=== PATIENT | male | born 1965 | race Caucasian/White ===

== ENCOUNTER 2023-12-28 10:49 | Emergency (ER) | payer OTHER ==
[~2023-12-28] VITALS: Ht 182.9 cm; Wt 110.4 kg
[2023-12-28 11:58] LABS: BASOPHILS 0.2 % (0-2); EOSINOPHILS 4.3 % (0-6); HEMATOCRIT 50.4 % (35.0-50.0); HEMOGLOBIN 17.8 g/dL (12.0-18.0); LYMPHOCYTES 6.7 % (24-44); MCHC 35.4 g/dl (30-36); MCV 101.7 fl (81-99); MONOCYTES 8.3 % (0-12); NEUTROPHILS 80.5 % (39-80); PLATELET COUNT 158 K/uL (140-440); RBC 4.96 M/ul (4.3-5.7); RDW 13.6 (10.5-15.0)
[2023-12-28 12:18] LABS: ALBUMIN 3.6 g/dL (3.4-5.0); ALBUMIN/GLOBULIN RATIO 0.92 (1.1-2.4); ANION GAP 11.4 (7-21); BILIRUBIN, TOTAL 0.6 ng/dL (0.2-1.0); BUN/CREATININE RATIO 13.09 (6.0-28.6); CALCIUM 9.2 mg/dL (8.5-10.1); CREATININE, SERUM 0.84 mg/dL (0.70-1.30); POTASSIUM 4.4 mmol/L (3.5-5.1); PROTEIN, TOTAL 7.5 g/dL (6.4-8.2)
[2023-12-28] MEDS ORDERED: HEParin SOD (PORCINE) 5,000 UNIT/ML SYR IV ONE ×2 (14:15)
[2023-12-28] MEDS ORDERED: HEPARIN SOD,PORK IN 0.45% NACL 500 ML IV SCH (14:15)
[2023-12-28 14:30] LABS: INR 0.95 (0.80-1.30); PARTIAL THROMBOPLASTIN TIME 27.8 Sec (22.9-41.3)
[2023-12-28] MEDS ORDERED: NICOTINE POLACRILEX 4 MG LOZENGE BUCCAL PRN (19:00)
[2023-12-29] MEDS ORDERED: HEParin SOD (PORCINE) 5,000 UNIT/ML SYR IV PRN ×3 (07:30)
[2023-12-29] MEDS ORDERED: NICOTINE 14 MG/24 HR 1 EA TDSY TD ONE (14:30)
[2023-12-29] MEDS ORDERED: LORazepam 2 MG/ML VIAL IV ONE (14:30)
[2023-12-29] MEDS ORDERED: LORazepam 2 MG/ML VIAL IV PRN (18:45)
[2023-12-29] MEDS ORDERED: ACETAMINOPHEN 500 MG TAB PO ONE (20:00)
[2023-12-29] MEDS ORDERED: TRAZODONE HCL 50 MG TAB PO SCH (21:00)
[2023-12-30 13:35] VITALS: BP 167/88
[2023-12-30] MEDS ORDERED: LOSARTAN POTASS25 MG PO (13:45)
== END 2023-12-30 13:35 | disposition short-term general hospital (02) ==
LOC: ED 10:49
PROVIDERS: Emergency Medicine
DX: I82.412 Acute embolism and thrombosis of left femoral vein (principal); I82.422 Acute embolism and thrombosis of left iliac vein; K57.30 Diverticulosis of large intestine without perforation or abscess without bleeding; I10 Essential (primary) hypertension; E27.9 Disorder of adrenal gland, unspecified
CPT/HCPCS: 36415; 74177; 80053; 85025; 85610; 85730; 93971; 96366; 96375; 96376; 99285-25; A9270; J1644; J2060; Q9967

== ENCOUNTER 2024-01-12 02:32 | Inpatient (IN) | payer OTHER ==
[~2024-01-12] VITALS: Ht 182.9 cm; Wt 107.1 kg
[2024-01-12] VITALS (7 sets, daily range): BP systolic 131–170; BP diastolic 70–97
--- OUTSIDE RECORDS SUMMARY | ~2024-01-12 | XMS | Continuity of Care Document ---
Demographics + + + | Address | [address] | | | [place] [address] | + + + | Preferred Language | Unknown | + + + | Marital Status | Unknown | + + + | Druze Affiliation | Unknown | + + + | Race | White | + + + | Ethnic Group | Not or | + + + Author + + + | Author | [facility] | + + + | Organization | [facility] | + + + | Address | [address] | | | [place] [address] | + + + | Phone | | + + + Care Team Providers + + + + | Care Jacquard Card Cutter Name | Role | Phone | + + + + Unavailable | Unavailable | + + + + Allergies No information. Encounters No information. Functional Status No information. Immunizations No information. Medications No information. Problems + + + + | date | description | facility | + + + + | 2024-01-03 13:33:32 | Essential (primary) | [facility] | | | hypertension | | + + + + | 2024-01-03 13:33:32 | Acute embolism and | [facility] | | | thrombosis of left femoral | | | | vein | | + + + + Procedures No information. Results/Labs No information. Social History +--------+ + + | date | description | facility | +--------+ + + Vital Signs No information."
--- OUTSIDE RECORDS SUMMARY | ~2024-01-12 | XMS | Continuity of Care Document ---
Demographics + + + | Address | [address] | | | [place] [address] | + + + | Preferred Language | Unknown | + + + | Marital Status | Unknown | + + + | Sikh Affiliation | Unknown | + + + | Race | White | + + + | Ethnic Group | Not or | + + + Author + + + | Author | [facility] | + + + | Organization | [facility] | + + + | Address | [address] | | | [place] [address] | + + + | Phone | | + + + Care Team Providers + + + + | Care Client Technical Professional Name | Role | Phone | + [...]
[~2024-01-12 02:32] MED LIST: LOSARTAN POTASS25 MG PO
--- OUTSIDE RECORDS SUMMARY | 2024-01-12 02:33 | XMS ---
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 - 2 Visits in 30 Days CARE PROVIDERS ALLEGRA WARREN Emergency Medicine Current PHONE: [phone] RIAN GEE Physician Current PHONE: Unknown Anthony has no Care Guidelines for this patient. Tana VISIT COUNT (12 MO.) 2 [facility] TOTAL 2 NOTE: Visits indicate total known visits. ED/UCC VISIT TRACKING (12 MO.) 01/12/2024 02:[address] [facility] [place] TYPE: Emergency COMPLAINT: - POSS STROKE 12/28/2023 10:50 [facility] [place] TYPE: Emergency COMPLAINT: - LT LEG SWELLING DIAGNOSES: - Acute embolism and thrombosis of left femoral vein - Acute embolism and thrombosis of left iliac vein - Disorder of adrenal gland, unspecified - Diverticulosis of large intestine without perforation or abscess without bleeding - Essential (primary) hypertension - Localized swelling, mass and lump, left lower limb INPATIENT VISIT TRACKING (12 MO.) 12/30/2023 18:23 [facility] TYPE: General Medicine COMPLAINT: - DVT DIAGNOSES: - Acute embolism and thrombosis of left femoral vein - Acute embolism and thrombosis of unspecified deep veins of unspecified lower extremity - Essential (primary) hypertension [email or web address]
[2024-01-12] MEDS ORDERED: IBLOOD GLUCOSE TEST STRIP 1 EA TEST XX ONE (02:45)
[2024-01-12 02:56] LABS: BASOPHILS 0.3 % (0-2); EOSINOPHILS 0.9 % (0-6); HEMATOCRIT 44.3 % (35.0-50.0); HEMOGLOBIN 15.2 g/dL (12.0-18.0); LYMPHOCYTES 2.7 % (24-44); MCH 34.9 (27-36); MCHC 34.2 g/dl (30-36); MONOCYTES 6.6 % (0-12); NEUTROPHILS 89.5 % (39-80); PLATELET COUNT 242 K/uL (140-440); RBC 4.35 M/ul (4.3-5.7); RDW 13.4 (10.5-15.0)
[2024-01-12 03:06] LABS: PARTIAL THROMBOPLASTIN TIME 29.9 Sec (22.9-41.3)
[2024-01-12 03:07] LABS: PROTIME 12.5 Sec (11.2-14.2)
[2024-01-12] MEDS ORDERED: ELIQUIS5 MG PO (03:12)
[2024-01-12] MEDS ORDERED: VITAMIN B-121000 MCG PO (03:13)
[2024-01-12 03:20] LABS: ALBUMIN 3.5 g/dL (3.4-5.0); ALBUMIN/GLOBULIN RATIO 0.97 (1.1-2.4); ANION GAP 14.8 (7-21); BILIRUBIN, TOTAL 0.4 ng/dL (0.2-1.0); BUN/CREATININE RATIO 16.16 (6.0-28.6); CALCIUM 8.6 mg/dL (8.5-10.1); CREATININE, SERUM 0.99 mg/dL (0.70-1.30); POTASSIUM 3.8 mmol/L (3.5-5.1); PROTEIN, TOTAL 7.1 g/dL (6.4-8.2)
[2024-01-12 03:47] LABS: BILIRUBIN, URINE NEGATIVE (negative); BLOOD/HGB, URINE NEGATIVE (Negative); KETONE, URINE NEGATIVE (Negative); LEUK ESTERASE, URINE NEGATIVE (negative); NITRITE, URINE NEGATIVE (negative)
[2024-01-12 03:57] LABS: AMPHETAMINES, URINE NEGATIVE (NEGATIVE); BARBITURATES, URINE NEGATIVE (NEGATIVE); BENZODIAZEPINE, URINE NEGATIVE (NEGATIVE); BUPRENORPHINE, URINE NEGATIVE (NEGATIVE); CANNABINOID, URINE NEGATIVE (NEGATIVE); COCAINE, URINE NEGATIVE (NEGATIVE); ECSTASY, URINE NEGATIVE (NEGATIVE); FENTANYL, URINE NEGATIVE (NEGATIVE); METHADONE, URINE NEGATIVE (NEGATIVE); OPIATES, URINE NEGATIVE (NEGATIVE); OXYCODONE, URINE NEGATIVE (NEGATIVE); PHENCYCLIDINE, URINE NEGATIVE (NEGATIVE)
[2024-01-12] MEDS ORDERED: ATORVASTATIN 40 MG TAB PO ONE (04:00)
--- NOTE | 2024-01-12 05:06 | NUR ---
PATIENT BROUGHT TO THE FLOOR BY THIS RN. PATIENT TRANSFERRED FROM STRETCHER TO BED BY STAFF. PATIENT REPORTS NEEDING TO URINATE. THIS RN ASSISTED PATIENT WITH URINAL. SKIN ASSESSMENT COMPLETE. LEFT LEG +3 EDEMA PRESENT. PATIENT STATES EDEMA AND REDNESS IS FROM PREVIOUS DVT. LLE PULSE PRESENT USING DOPPLER. RLE PULSE STRONG TO TOUCH. TELE IN PLACE. IV FLUSHES WNL. PATIENT DENIES PAIN. FRESH WATER PROVIDED. BED ALARM ON FOR SAFETY.
--- NOTE | 2024-01-12 06:34 | NUR ---
CALL LIGHT ANSWERED. PATIENT WANTING TO STAND UP AT EDGE OF BED TO USE URINAL. THIS RN AND SHOE PACKER ASSISTED PATIENT TO STAND UP AT EDGE OF BED WITH FWW. PATIENT ABLE TO STAND AND MARCH IN PLACE. PATIENT VOIDED INTO URINAL. PATIENT SITTING AT EDGE OF BED, LOOKING OUT WINDOW. PATIENT REQUESTING TO STAY SITTING AT EDGE OF BED. PATIENT EDUCATED NOT TO GET UP WITHOUT STAFF ASSISTANCE. PATIENT VERBILIZES UNDERSTANDING. BED ALARM ON. COFFEE PROVIDED PER PATIENT REQUEST. CALL LIGHT IN REACH.
--- NOTE | 2024-01-12 08:00 | NUR ---
PT IS CURRENTLY IN BED AND CALLED TO ASK FOR HELP FINDING THE NUMBER TO HIS JOB. PT STATES THAT HE NEEDS NOTHING AT THIS TIME. CALL LIGHT WITHIN REACH
[2024-01-12 09:25] LABS: CHOLESTEROL/HDL RATIO 4.6; MAGNESIUM 1.8 mg/dL (1.8-2.4); PHOSPHORUS, INORGANIC 2.9 mg/dL (2.5-4.9)
--- NOTE | 2024-01-12 10:37 | NUR ---
MED REC COMPLETE
--- NOTE | 2024-01-12 11:26 | NUR ---
WHILE PATIENT WAS OUT OF HIS ROOM. GOT HIM SOME FRESH ICE WATER AND CHANGED HIS BED LINENS.
[2024-01-12] MEDS ORDERED: ondansetron HCL 4 MG/2 ML VIAL IV PRN (13:15)
[2024-01-12] MEDS ORDERED: NICOTINE POLACRILEX 4 MG LOZENGE BUCCAL PRN (13:15)
[2024-01-12] MEDS ORDERED: ACETAMINOPHEN 325 MG TAB PO PRN (13:15)
--- NOTE | 2024-01-12 13:27 | NUR ---
VISITED DURING SPIRITUAL CARE ROUNDS. PT APPEARED TO BE SOMEWHAT CYNICAL STATING, "I FEEL LIKE SHIT BUT I'LL GET BY - I ALWAYS DO." RESISTANT TO ENGAGING MORE FULLY IN CONVERSATION. INSTRUMENTATION TECHNOLOGIST PROVIDED SUPPORTIVE PRESENCE, HOSPITALITY, PRAYER. PT EXPRESSED GRATITUDE FOR VISIT.
--- NOTE | 2024-01-12 14:35 | NUR ---
IN TO ROUND ON PT. PT LAYING IN BED AND RESPONDS WHEN ADDRESSED. PT DENIES ANY NEEDS AT THIS TIME. CALL LIGHT IN REACH.
--- NOTE | 2024-01-12 14:51 | NUR ---
NO RT INTERVENTIONS REQUIRED AT THIS TIME. PLEASE CALL WITH CONCERNS OR O2 USE.
--- NOTE | 2024-01-12 16:00 | NUR ---
Spoke with pt. He lives town in a home with 2 steps. He denies needs. States he may need a walker and I let him know I can order through a DME company. Pt states he is in fair shape and can walk around the block without issues. He does not use any DME. He has spoken with Dr. Arenas and is aware he has multiple infarcts and will need to have a procedure in the next 2-14 days. We discussed his preference to return to [place] where he was originally transferred or go to [place] to the . Dr. Arenas discussed his case with. Pt states he just wants to go home. I asked if he does not want treatment and he does. He is just unsure of what he will need. He does request to return to [place]. I will attempt to get his old records to determine which vascular surgeon he saw in [place]. Pt cannot remember his name. He does remember Dr. Hutchison, but thinks he was the hospitalist. Pt states he has friends who will drive him when needed. 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
[2024-01-12] MEDS ORDERED: ASPIRIN 325 MG TAB PO ONE (16:30)
[2024-01-12] MEDS ORDERED: LORazepam 2 MG/ML VIAL IV/IM PRN (16:30)
[2024-01-12] MEDS ORDERED: THIAMINE HCL 100 MG,FOLIC ACID 1 MG,MULTIVITAMINS 10 ML in SODIUM CHLORIDE 0.9% 1,000 ML IV ONE (16:30)
[2024-01-12] MEDS ORDERED: LORazepam 1 MG TAB PO PRN (16:30)
[2024-01-12] MEDS ORDERED: ATORVASTATIN 40 MG TAB PO SCH ×2 (18:00→21:00)
--- NOTE | 2024-01-12 19:25 | NUR ---
REPORT RECIEVED FROM DAY SHIFT RN. PATIENT RESTING IN BED WATCHING AN IPAD. THIS RN ASKED PATIENT IF HE WAS DOING OK, PATIENT STATES "QUIT ASKING ME THAT". THIS RN EDUCATED PATIENT TO CALL IF HE NEEDED ANYTHING. CALL LIGHT IN REACH.
--- NOTE | 2024-01-12 20:19 | NUR ---
PATIENT RESTING IN BED WATCHING IPAD. VS AND I&Os OBTAINED AND RECORDED. IV FLUSHES WNL. ASEESSMENT COMPLETE. PATIENT DENIES PAIN OR SOB. SCHEDULED MEDICATON ADMINISTERED. BED ALARM ON FOR SAFETY. PATIENT DENIES NEEDS AT THIS TIME. CALL LIGHT IN REACH.
[2024-01-12] MEDS ORDERED: APIXABAN 5 MG TAB PO SCH (21:00)
[2024-01-12] MEDS ORDERED: CLOPIDOGREL BISULFATE 75 MG TAB PO SCH (21:00)
--- NOTE | 2024-01-12 21:09 | NUR ---
IV FLUSHED WITH SALINE, THEN SL. PT DENIES NEEDS. ALL PERSONAL SUPPLIES WITHIN HIS REACH.
--- NOTE | 2024-01-12 21:41 | EKG ---
[facility] [address] [place] [address] Signed Sinus rhythm with fusion complexes Right bundle branch block Abnormal ECG No previous ECGs available Confirmed by Alvaro Giang MD () on 01/12/2024 9:41:10 PM Electronically Signed By: ALVARO GIANG MD 01/12/242140 PATIENT NAME: FELICIANO VIVAR Electrocardiogram DATE OF : 61 PHYSICIAN: ALVARO GIANG MD REPORT #: [id number] REPORT IS CONFIDENTIAL AND NOT TO BE RELEASED WITHOUT AUTHORIZATION
--- NOTE | 2024-01-12 22:55 | NUR ---
PATIENT RESTING IN BED WITH EYES CLOSED. REPSIRATIONS EVEN AND UNLABORED. CALL LIGHT IN REACH.
--- NOTE | 2024-01-13 00:13 | NUR ---
PATIENT RESTING IN BED ON BACK WITH EYES CLOSED. RESPIRATIONS EVEN AND UNLABORED. CALL LIGHT IN REACH.
[2024-01-13 01:13] VITALS: BP 141/79
--- NOTE | 2024-01-13 01:20 | NUR ---
CUSTOMER SUPPORT ASSISTANT OBTAINED VITALS AND I&O. PT STATED HE NEEDED TO VOID. CUSTOMER SUPPORT ASSISTANT SBA WITH FWW TO BATHROOM. PT VOIDED INTO URINAL. OUTPUT OBTAINED AND URINAL EMPTIED. PT ASSISTED BACK TO BED. PT STATES NO FURTHER NEEDS AT THIS TIME. CALL LIGHT WITHIN REACH.
--- NOTE | 2024-01-13 03:37 | NUR ---
PATIENT RESTING IN BED ON BACK WITH EYES CLOSED. RESPIRATIONS EVEN AND UNLABORED. CALL LIGHT IN REACH.
[2024-01-13 04:00] VITALS: BP 149/84
--- NOTE | 2024-01-13 04:06 | NUR ---
NEW BATTERY PLACED IN TELE. VS OBTAINED AND RECORDED. ASSESSMENT COMPLETE. PATIENT HAS NO FURTHER NEEDS. CALL LIGHT IN REACH.
[2024-01-13 04:07] VITALS: BP 149/84
[2024-01-13 05:28] LABS: BASOPHILS 0.6 % (0-2); EOSINOPHILS 3.4 % (0-6); HEMATOCRIT 41.7 % (35.0-50.0); HEMOGLOBIN 14.4 g/dL (12.0-18.0); LYMPHOCYTES 10.5 % (24-44); MCH 34.8 (27-36); MCHC 34.5 g/dl (30-36); MCV 100.7 fl (81-99); NEUTROPHILS 75.5 % (39-80); PLATELET COUNT 224 K/uL (140-440); RBC 4.15 M/ul (4.3-5.7); RDW 13.1 (10.5-15.0)
[2024-01-13 05:45] LABS: ALBUMIN 3.1 g/dL (3.4-5.0); ALBUMIN/GLOBULIN RATIO 0.97 (1.1-2.4); ANION GAP 11.1 (7-21); BILIRUBIN, TOTAL 0.7 ng/dL (0.2-1.0); BUN/CREATININE RATIO 11.11 (6.0-28.6); CALCIUM 8.7 mg/dL (8.5-10.1); CREATININE, SERUM 0.81 mg/dL (0.70-1.30); POTASSIUM 4.1 mmol/L (3.5-5.1); PROTEIN, TOTAL 6.3 g/dL (6.4-8.2)
--- NOTE | 2024-01-13 06:31 | NUR ---
OFFERED AND ACCEPTED FRESH COFFEE
--- NOTE | 2024-01-13 07:07 | NUR ---
UR CLINICAL REVIEW: [facility] CRITERIA FOR [facility] PREFERRED INPT 01/12/24 @ 1307 ORDER MATCHES REG WILL SEND CLINICAL FOR AUTH REVIEW DISCHARGE PENDING FURTHER NEEDS ASSESSMENT 01/16/24
--- NOTE | 2024-01-13 07:30 | NUR ---
Patient awake, alert and oriented x4. Patient is on room air, respirations even and non labored. Patient has no needs at this time.
[2024-01-13] MEDS ORDERED: ASPIRIN 81 MG CHEW PO SCH (08:00)
--- NOTE | 2024-01-13 10:00 | NUR ---
Spoke with Saroj. He plans on dc today. Pt plans on building his own walker, but does agree to go to [place] and pick and shovel man a walker or a cane for stability. Discussed were are waiting for chart from his [facility] to find out which pt saw. Will attempt to schedule pt to see the vascular surgeon he saw at [facility].
[2024-01-13 10:25] VITALS: BP 159/90
[2024-01-13 10:30] VITALS: BP 159/90
--- NOTE | 2024-01-13 10:43 | NUR ---
SPOKE WITH HIM IN FACILITY, THEY RECIEVED RECORDS FROM [facility] AND [facility] IN [place]. REQUEST RECORDS BE FAXED TO CASE MANAGEMENT, WILL SEND THEM SHORTLY.
--- NOTE | 2024-01-13 11:30 | NUR ---
Reviewed chart from [facility]. In and spoke with pt and asked if he saw a Vascular surgeon as there is not one listed in his chart. He states he went to [facility] for a procedure on his clots. He is not sure what Dr. he saw. He is now agreeable to see Dr. Live Kincaid at [facility] in [place]. I called and was able to speak with Dann in their office. Updated has spoken with Dr. Arenas and agreed to see this pt in the next 2 weeks. He does not have record of this pt, but will contact Dr. Kincaid. I will fax his current chart and the chart from [facility]. Pt is needing and bilat. endarterectomy. Face sheet was sent with the chart and their office will call this pt. Chart was then sent to Dr. García with request for him to send a referral. I also called and spoke with his office staff of need for referral. Phone number and fax number for Dr. Kincaid given.
[2024-01-13] MEDS ORDERED: ASPIRIN81 MG PO (11:47)
[2024-01-13] MEDS ORDERED: CLOPIDOGREL75 MG PO (11:47)
[2024-01-13] MEDS ORDERED: LIPITOR40 MG PO (11:47)
[2024-01-13] MEDS ORDERED: PHARMACY RENAL DOSE ADJUSTMENT 1 DOSE MISC PO SCH (12:00)
--- NOTE | 2024-01-13 14:00 | NUR ---
In and spoke with Saroj. Phone number, Dr and office name, phone, and fax number given. UPdated they will contact in next week. Requested if he doesn't hear from them early next week to call the number and attempt to schedule an appt.
== END 2024-01-13 15:25 | disposition home or self-care (01) | DRG 65 ==
LOC: ED 02:32 → MS 04:02
PROVIDERS: Internal Medicine; ADMIT Family Medicine; ATTEND Family Medicine
DX: I63.133 Cerebral infarction due to embolism of bilateral carotid arteries (principal); G81.94 Hemiplegia, unspecified affecting left nondominant side; E78.5 Hyperlipidemia, unspecified; F17.200 Nicotine dependence, unspecified, uncomplicated; F10.90 Alcohol use, unspecified, uncomplicated; R29.704 NIHSS score 4; Z86.718 Personal history of other venous thrombosis and embolism; Z71.6 Tobacco abuse counseling
CPT/HCPCS: 36415; 70450; 70496; 70498; 70551; 71045; 80053; 80061; 80307; 81003; 83036; 83735; 84100; 84484; 85025; 85610; 85730; 92523; 93005; 93010; 93306; 93880; 94760; 97161; 97530; A9270; G0480; J3411; J7030; Q9967

== ENCOUNTER 2024-05-09 16:14 | Emergency (ER) | payer OTHER ==
[~2024-05-09] VITALS: Ht 182.9 cm; Wt 101.8 kg
[~2024-05-09 16:14] MED LIST changes: +ASPIRIN81 MG PO; +CLOPIDOGREL75 MG PO; +ELIQUIS5 MG PO; +LIPITOR40 MG PO; +VITAMIN B-121000 MCG PO
[2024-05-09] MEDS ORDERED: LOSARTAN-HCTZ1 EAC2 PO (17:40)
[2024-05-09 17:55] VITALS: BP 133/117
== END 2024-05-09 17:55 | disposition home or self-care (01) ==
LOC: ED 16:14
DX: R53.1 Weakness (principal); I10 Essential (primary) hypertension; Z86.718 Personal history of other venous thrombosis and embolism; Z86.73 Personal history of transient ischemic attack (TIA), and cerebral infarction without residual deficits; Z79.01 Long term (current) use of anticoagulants; Z79.82 Long term (current) use of aspirin; Z79.899 Other long term (current) drug therapy
CPT/HCPCS: 99284

== ENCOUNTER 2024-05-09 20:02 | Emergency (ER) | payer OTHER ==
[~2024-05-09] VITALS: Ht 182.9 cm; Wt 103.8 kg
[~2024-05-09 20:02] MED LIST changes: +LOSARTAN-HCTZ1 EAC2 PO
--- OUTSIDE RECORDS SUMMARY | 2024-05-09 20:09 | XMS ---
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 Tana VISIT COUNT (12 MO.) [address] [place] [address] TOTAL 4 NOTE: Visits indicate total known visits. 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 TYPE: General Medicine COMPLAINT: - DVT DIAGNOSES: - Acute embolism and thrombosis of left femoral vein - Acute embolism and thrombosis of unspecified deep veins of unspecified lower extremity - Essential (primary) hypertension [email or web address]
[2024-05-09 21:45] LABS: BASOPHILS 0.7 % (0-2); EOSINOPHILS 1.5 % (0-6); HEMATOCRIT 47.6 % (35.0-50.0); HEMOGLOBIN 16.8 g/dL (12.0-18.0); LYMPHOCYTES 9.7 % (24-44); MCH 34.8 (27-36); MCHC 35.3 g/dl (30-36); MCV 98.5 fl (81-99); MONOCYTES 10.3 % (0-12); NEUTROPHILS 77.8 % (39-80); PLATELET COUNT 230 K/uL (140-440); RBC 4.83 M/ul (4.3-5.7); RDW 13.4 (10.5-15.0)
[2024-05-09 22:04] LABS: ALBUMIN 3.2 g/dL (3.4-5.0); ALBUMIN/GLOBULIN RATIO 0.82 (1.1-2.4); ANION GAP 13.7 (7-21); BILIRUBIN, TOTAL 0.5 ng/dL (0.2-1.0); BUN/CREATININE RATIO 16.52 (6.0-28.6); CALCIUM 8.9 mg/dL (8.5-10.1); CREATININE, SERUM 1.21 mg/dL (0.70-1.30); MAGNESIUM 2.1 mg/dL (1.8-2.4); POTASSIUM 3.7 mmol/L (3.5-5.1); PROTEIN, TOTAL 7.1 g/dL (6.4-8.2)
[2024-05-09 22:25] LABS: BILIRUBIN, URINE NEGATIVE (negative); BLOOD/HGB, URINE NEGATIVE (Negative); KETONE, URINE NEGATIVE (Negative); LEUK ESTERASE, URINE NEGATIVE (negative); NITRITE, URINE NEGATIVE (negative)
[2024-05-09 23:02] VITALS: BP 147/89
--- NOTE | 2024-05-11 12:04 | EKG ---
[facility] [address] [place] [address] Signed Sinus rhythm with occasional premature ventricular complexes Otherwise normal ECG When compared with ECG of 12-JAN-2024 03:19, fusion complexes are no longer present premature ventricular complexes are now present Right bundle branch block is no longer present Confirmed by Tamika Montalvo MD ([id number]) on 05/11/2024 12:04:39 PM Electronically Signed By: TAMIKA MONTALVO 05/11/24 1204 PATIENT NAME: FELICIANO VIVAR Electrocardiogram DATE OF : 61 PHYSICIAN: TAMIKA MONTALVO REPORT #: [id number] REPORT IS CONFIDENTIAL AND NOT TO BE RELEASED WITHOUT AUTHORIZATION
== END 2024-05-09 23:04 | disposition home or self-care (01) ==
LOC: ED 20:02
PROVIDERS: Family Medicine
DX: R53.1 Weakness (principal); I10 Essential (primary) hypertension; Z79.82 Long term (current) use of aspirin; Z79.01 Long term (current) use of anticoagulants; Z79.899 Other long term (current) drug therapy
CPT/HCPCS: 36415; 80053; 81003; 83735; 85025; 85060; 93005; 93010; 99285